=== PATIENT | male | born 1970 | race Hispanic/Latino ===

== ENCOUNTER 2021-03-29 17:16 | Emergency (ER) | payer BC | END 2021-03-29 18:02 | disposition home or self-care (01) | LOC: NAV ERS 17:16 | DX: J02.9 Acute pharyngitis, unspecified (principal); K12.1 Other forms of stomatitis; G43.909 Migraine, unspecified, not intractable, without status migrainosus | CPT/HCPCS: 87081; 87430; 99284 ==